=== PATIENT | female | born 1990 | race African-American/Black ===

== ENCOUNTER 2018-10-16 07:25 | Emergency (ER) | payer SELFPAY ==
[~2018-10-16] VITALS: Ht 167.6 cm; Wt 195.9 kg
[2018-10-16 07:32] VITALS: Ht 167.6 cm; Wt 195.9 kg
[2018-10-16 08:09] LABS: BASOPHILS 0.2 % (0-2); EOSINOPHILS 1.1 % (0-7); HEMOGLOBIN 12.7 g/dL (12-16); IMMATURE GRANULOCYTES 0.3 % (0-5); LYMPHOCYTES 34.7 % (15-50); MCH 27.9 pg (26.0-34.0); MCHC 32.6 g/dL (31.0-37.0); MCV 85.5 fL (80.0-100.0); MONOCYTES 4.8 % (2-11); NEUTROPHILS 58.9 % (40-80); PLATELET COUNT 345 10x3/uL (130-400); RBC 4.56 10x6/uL (4.00-5.40); RDW 14.8 % (11.5-14.5); WBC 6.3 10x3/uL (4.8-10.8)
[2018-10-16 08:25] LABS: ALBUMIN 3.2 g/dL (3.4-5.0); ALKALINE PHOSPHATASE 59 U/L (46-116); ALT (SGPT) 32 U/L (10-68); BILIRUBIN - TOTAL 0.23 mg/dL (0.2-1.3); CALC OSMOLALITY 285 mosm/kg (275-300); CARBON DIOXIDE 29.8 mmol/L (21.0-32.0); CHLORIDE - SERUM 105 mmol/L (98-107); CREATININE - SERUM 0.9 mg/dL (0.6-1.3); GLUCOSE 112 mg/dL (74-106); POTASSIUM - SERUM 3.8 mmol/L (3.5-5.1); PROTEIN - SERUM 7.6 g/dL (6.4-8.2); SODIUM 143 mmol/L (136-145); UREA NITROGEN 13 mg/dL (7-18); eGFR NON AFRICAN AMERICAN 79 mL/min (90-120)
[2018-10-16 10:11] LABS: APPEARANCE SL CLDY (CLEAR); BILIRUBIN NEGATIVE (NEGATIVE); COLOR YELLOW (YELLOW); GLUCOSE NEGATIVE (NEGATIVE); HCG URINE NEGATIVE (NEGATIVE); KETONE NEGATIVE (NEGATIVE); NITRITE NEGATIVE (NEGATIVE); PROTEIN NEGATIVE (NEGATIVE); SPECIFIC GRAVITY 1.025 (1.005-1.020); UROBILINOGEN NORMAL (NORMAL)
[2018-10-16 10:20] LABS: UDS - AMPHET NEGATIVE QUAL (NEGATIVE); UDS - BARB NEGATIVE QUAL (NEGATIVE); UDS - BENZO NEGATIVE QUAL (NEGATIVE); UDS - COCAINE NEGATIVE QUAL (NEGATIVE); UDS - OPIATE NEGATIVE QUAL (NEGATIVE); UDS - PCP NEGATIVE QUAL (NEGATIVE); UDS - THC NEGATIVE QUAL (NEGATIVE)
[2018-10-16] MEDS ORDERED: NAPROSYN500 MG PO (11:16)
[2018-10-16 11:31] VITALS: BP 128/71
== END 2018-10-16 11:32 | disposition home or self-care (01) ==
LOC: D.ER 07:25
PROVIDERS: Family Medicine
DX: R51 Headache (principal); F17.200 Nicotine dependence, unspecified, uncomplicated

== ENCOUNTER 2019-08-07 13:57 | Emergency (ER) | payer MEDICAID ==
[~2019-08-07] VITALS: Ht 167.6 cm; Wt 190.5 kg
[~2019-08-07 13:57] MED LIST: NAPROSYN500 MG PO; PERCOCET 5-3251 TAB PO
[2019-08-07 14:00] VITALS: Ht 167.6 cm; Wt 190.5 kg
[2019-08-07 15:25] LABS: BASOPHILS 0.1 % (0-2); EOSINOPHILS 1.1 % (0-7); HEMATOCRIT 32.4 % (36.0-48.0); HEMOGLOBIN 10.2 g/dL (12-16); IMMATURE GRANULOCYTES 0.4 % (0-5); LYMPHOCYTES 28.6 % (15-50); MCH 27.4 pg (26.0-34.0); MCHC 31.5 g/dL (31.0-37.0); MCV 87.1 fL (80.0-100.0); MEAN PLATELET VOLUME 9.3 fL (7.4-10.4); MONOCYTES 6.7 % (2-11); NEUTROPHILS 63.1 % (40-80); PLATELET COUNT 456 10x3/uL (130-400); RBC 3.72 10x6/uL (4.00-5.40); RDW 14.2 % (11.5-14.5)
[2019-08-07 15:32] LABS: CALC OSMOLALITY 282 mosm/kg (275-300); CALCIUM 8.8 mg/dL (8.5-10.1); CARBON DIOXIDE 35.5 mmol/L (21.0-32.0); CHLORIDE - SERUM 105 mmol/L (98-107); CREATININE - SERUM 0.9 mg/dL (0.6-1.3); GLUCOSE 88 mg/dL (74-106); POTASSIUM - SERUM 4.3 mmol/L (3.5-5.1); SODIUM 143 mmol/L (136-145); UREA NITROGEN 10 mg/dL (7-18); eGFR NON AFRICAN AMERICAN 78 mL/min (90-120)
[2019-08-07 15:34] LABS: APTT 40.4 SECONDS (22.8-39.4); INR 1.15 (0.85-1.17); PROTIME 14.2 SECONDS (11.6-15.0)
[2019-08-07 15:35] LABS: D-DIMER-QUANTITATIVE 1.38 ug/mLFEU (0.20-0.54)
[2019-08-07 15:39] LABS: ALBUMIN 3.2 g/dL (3.4-5.0); ALKALINE PHOSPHATASE 65 U/L (46-116); ALT (SGPT) 36 U/L (10-68); BILIRUBIN - TOTAL 0.26 mg/dL (0.2-1.3); PROTEIN - SERUM 7.1 g/dL (6.4-8.2)
[2019-08-07 18:38] VITALS: BP 106/62
== END 2019-08-07 18:18 | disposition home or self-care (01) ==
LOC: D.ER 13:57
PROVIDERS: Family Medicine
DX: R06.02 Shortness of breath (principal); Z90.710 Acquired absence of both cervix and uterus; F17.210 Nicotine dependence, cigarettes, uncomplicated; E11.9 Type 2 diabetes mellitus without complications; I10 Essential (primary) hypertension

== ENCOUNTER 2020-07-23 10:59 | Emergency (ER) | payer MEDICAID ==
[~2020-07-23] VITALS: Ht 165.1 cm; Wt 190.5 kg
[2020-07-23 11:16] VITALS: BP 140/101; Ht 165.1 cm; Wt 190.5 kg
[2020-07-23] MEDS ORDERED: CLOTRIM ANTIFUN15 GM TOPICAL (11:46)
== END 2020-07-23 12:16 | disposition home or self-care (01) ==
LOC: D.ER 10:59
DX: M54.5 Low back pain (principal); B35.9 Dermatophytosis, unspecified